=== PATIENT | male | born 1975 | race Caucasian/White ===

== ENCOUNTER 2018-03-04 20:51 | Emergency (ER) | payer SELFPAY ==
[~2018-03-04] VITALS: Ht 172.7 cm; Wt 99.8 kg
[2018-03-04 21:02] VITALS: BP 140/86
[2018-03-04] MEDS ORDERED: METH4TAB2 PO (22:27)
[2018-03-04] MEDS ORDERED: DICL50TA2 PO (22:27)
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
[2018-03-04] MEDS: NAPROXEN 500 MG TABLET PO ONE (23:03)
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
== END 2018-03-04 23:08 | disposition home or self-care (01) ==
LOC: ER 20:51
DX: S80.01XA Contusion of right knee, initial encounter (principal); V29.9XXA Motorcycle rider (driver) (passenger) injured in unspecified traffic accident, initial encounter; Y93.89 Activity, other specified; Y92.89 Other specified places as the place of occurrence of the external cause; Y99.8 Other external cause status
CPT/HCPCS: 73564; 99284